=== PATIENT | male | born 1940 | race African-American/Black ===

== ENCOUNTER 2020-05-27 11:29 | Inpatient (IN) | payer MEDICARE ==
[~2020-05-27] VITALS: Ht 180.3 cm; Wt 55.6 kg
[2020-05-27 13:48] LABS: APPEARANCE,URINE TURBID (CLEAR); BILIRUBIN,URINE NEGATIVE (NEGATIVE); GLUCOSE, URINE (UA) NEGATIVE (NEGATIVE); KETONES,URINE NEGATIVE (NEGATIVE); LEUKOCYTE ESTERASE ,URINE LARGE (NEGATIVE); NITRATE,URINE NEGATIVE (NEGATIVE); OCCULT BLOOD,URINE LARGE (NEGATIVE); PH,URINE 5.5 (5.0-8.0); PROTEIN,URINE TRACE (NEGATIVE); UROBILINOGEN,URINE 0.2 mg/dL (<=1.0)
[2020-05-27 13:51] LABS: AMPHET/METH SCREEN,URINE NEGATIVE (NEGATIVE); BARBITURATE SCREEN, URINE NEGATIVE (NEGATIVE); BENZODIAZEPINES SCREEN,URINE NEGATIVE (NEGATIVE); CANNABINOID SCREEN,URINE NEGATIVE (NEGATIVE); COCAINE SCREEN,URINE NEGATIVE (NEGATIVE); METHADONE SCREEN, URINE NEGATIVE (NEGATIVE); OPIATE SCREEN,URINE NEGATIVE (NEGATIVE)
[2020-05-27 13:52] LABS: PHENCYCLIDINE SCREEN,URINE NEGATIVE (NEGATIVE)
[2020-05-27 13:58] LABS: BACTERIA,URINE Few /HPF (None Seen); WBC,URINE Full Field /HPF (0-5)
[2020-05-27 13:59] LABS: SQUAMOUS EPITHELIAL CELL,UR Few /LPF (None Seen)
[2020-05-27 14:16] LABS: BASOPHILS % (AUTO) 1.1 % (0.0-2.0); EOSINOPHILS % (AUTO) 0.1 % (1.0-6.0); HEMATOCRIT 33.1 % (41-53); HEMOGLOBIN 10.8 g/dL (13.5-17.5); LYMPHOCYTES # (AUTO) 0.1 K/uL (1.0-4.8); LYMPHOCYTES % (AUTO) 0.7 % (22.0-44.0); MEAN CORPUSCULAR HEMOGLOBIN 29.7 pg (26.0-34.0); MEAN CORPUSCULAR HGB CONC 32.6 G/dL (31.0-37.0); MEAN CORPUSCULAR VOLUME 91 fL (80-100); MONOCYTES # (AUTO) 0.8 K/uL (0.1-1.0); MONOCYTES % (AUTO) 5.2 % (2.0-9.0); NEUTROPHILS # (AUTO) 13.6 K/uL (1.8-7.7); PLATELET COUNT (AUTO) 436 K/uL (150-450); RED BLOOD CELL COUNT(AUTO) 3.63 MIL/uL (4.50-5.90); RED CELL DISTRIBUTION WIDTH 13.6 % (11.5-14.5)
[2020-05-27 14:25] LABS: NEUTROPHILS % (AUTO) 92.9 % (40.0-70.0)
[2020-05-27 14:33] LABS: INR 1.1 (0.9-1.1); PROTHROMBIN TIME 11.9 SEC (9.4-11.6)
[2020-05-27 14:40] LABS: ANION GAP 16 mmol/L (8-16); CALCIUM, TOTAL 9.4 mg/dL (8.8-10.5); CARBON DIOXIDE 16 mmol/L (22-29); CHLORIDE 93 mmol/L (98-107); CREATININE 15.02 mg/dL (0.60-1.30); GLOMERULAR FILTR. RATE CALC 4 mL/min (>60); GLUCOSE,RANDOM 241 mg/dL (70-110); POTASSIUM 5.8 mmol/L (3.5-5.1); SODIUM SERUM 125 mmol/L (136-145)
[2020-05-27 14:44] LABS: ALANINE AMINOTRANSFERASE 76 U/L (12-78); ALBUMIN 2.6 g/dL (3.4-5.0); ALKALINE PHOSPHATASE 173 U/L (46-116); ASPARTATE AMINOTRANSFERASE 18 U/L (15-37); BILIRUBIN,TOTAL 0.6 mg/dL (0.1-1.0); CREATINE KINASE, TOTAL ONLY 48 U/L (39-308); TOTAL PROTEIN, SERUM 8.3 g/dL (6.4-8.2)
[2020-05-27 14:47] LABS: AMMONIA 23 umol/L (11-32)
[2020-05-27 14:51] LABS: LACTIC ACID 3.4 mmol/L (0.4-2.0)
[2020-05-27 14:52] LABS: TROPONIN I < 0.02 ng/mL (0.00-0.05)
[2020-05-27] MEDS ORDERED: SODIUM CHLORIDE 0.9% 2,050 ML IV ONE (15:01)
[2020-05-27 15:11] LABS: UREA NITROGEN, BLOOD 233 mg/dL (7-18)
[2020-05-27] MEDS ORDERED: CefTRIAXone 1 GM/DEXTROSE 50 ML IV ONE (15:15)
[2020-05-27] MEDS ORDERED: SODIUM POLYSTYRENE SULFONATE 15 GM/60 ML SUSPENSION BOTTLE PO ONE (15:15)
[2020-05-27] MEDS ORDERED: TAMSULOSIN HCL 0.4 MG CAPSULE PO ONE (16:15)
[2020-05-27 16:43] LABS: COVID AG,FIA SOURCE NASOPHARYNGEAL
[2020-05-27] MEDS ORDERED: ACETAMINOPHEN 500 MG TABLET PO ONE (17:45)
[2020-05-27] MEDS ORDERED: ACETAMINOPHEN 325 MG TABLET PO PRN (19:30)
[2020-05-27] MEDS ORDERED: ONDANSETRON HCL 4 MG/2 ML VIAL IVP PRN (19:30)
[2020-05-27] MEDS: SODIUM CHLORIDE 0.45% 1,000 ML IV SCH (19:58)
[2020-05-27] MEDS ORDERED: DEXTROSE 50%-WATER 25 GM/50 ML SYRINGE IVP PRN (20:00)
[2020-05-27 20:06] LABS: CALCIUM, TOTAL 9.1 mg/dL (8.8-10.5); CREATININE 13.22 mg/dL (0.60-1.30); MAGNESIUM 2.4 mg/dL (1.80-2.40); PHOSPHORUS 8.5 mg/dL (2.5-4.9); POTASSIUM 5.1 mmol/L (3.5-5.1)
[2020-05-27] MEDS ORDERED: SODIUM CHLORIDE 0.9% 1,000 ML IV ONE (20:30)
[2020-05-27 23:04] VITALS: BP 133/87
[2020-05-28 00:20] LABS: CREATININE 11.76 mg/dL (0.60-1.30); POTASSIUM 4.8 mmol/L (3.5-5.1)
[2020-05-28 00:42] LABS: GLUCOMETER DEV NAME(LOC) 5S.1; GLUCOSE,POINT OF CARE 119 MG/DL (70-110)
[2020-05-28] MEDS: SODIUM CHLORIDE 0.45% 1,000 ML IV SCH ×2 (06:24→16:12)
[2020-05-28 07:07] LABS: BASOPHILS % (AUTO) 0.1 % (0.0-2.0); EOSINOPHILS % (AUTO) 0.4 % (1.0-6.0); HEMATOCRIT 32.9 % (41-53); LYMPHOCYTES # (AUTO) 0.1 K/uL (1.0-4.8); LYMPHOCYTES % (AUTO) 1.5 % (22.0-44.0); MEAN CORPUSCULAR HEMOGLOBIN 29.9 pg (26.0-34.0); MEAN CORPUSCULAR HGB CONC 33.5 G/dL (31.0-37.0); MEAN CORPUSCULAR VOLUME 89 fL (80-100); MONOCYTES # (AUTO) 0.1 K/uL (0.1-1.0); MONOCYTES % (AUTO) 1.2 % (2.0-9.0); NEUTROPHILS # (AUTO) 7.2 K/uL (1.8-7.7); PLATELET COUNT (AUTO) 420 K/uL (150-450); RED BLOOD CELL COUNT(AUTO) 3.69 MIL/uL (4.50-5.90); RED CELL DISTRIBUTION WIDTH 13.3 % (11.5-14.5)
[2020-05-28 07:11] LABS: NEUTROPHILS % (AUTO) 96.8 % (40.0-70.0)
[2020-05-28 07:40] LABS: CALCIUM, TOTAL 8.6 mg/dL (8.8-10.5); CREATININE 9.48 mg/dL (0.60-1.30); POTASSIUM 4.3 mmol/L (3.5-5.1)
[2020-05-28 08:00] VITALS: BP 118/55
[2020-05-28] MEDS: INSULIN LISPRO 100 UNITS/ML SQ PRN ×2 (12:01→22:00)
[2020-05-28 15:17] LABS: COVID AG,FIA SOURCE NASOPHARYNGEAL
[2020-05-28 16:00] VITALS: BP 100/60
[2020-05-28] MEDS ORDERED: CefTRIAXone 1 GM/DEXTROSE 50 ML IV SCH (16:00)
[2020-05-28] MEDS ORDERED: VANCOMYCIN HCL 1 GM/D5% WATER 200 ML IV ONE (16:00)
[2020-05-28] MEDS ORDERED: VANCOMYCIN HCL 1 GM/D5% WATER 200 ML IV PRN (16:00)
[2020-05-28 19:32] VITALS: BP 93/64
[2020-05-28 22:11] LABS: GLUCOMETER DEV NAME(LOC) 5S.1; GLUCOSE,POINT OF CARE 218 MG/DL (70-110)
[2020-05-28 22:11] LABS: GLUCOMETER DEV NAME(LOC) 5S.1; GLUCOSE,POINT OF CARE 126 MG/DL (70-110)
[2020-05-28 23:44] VITALS: BP 91/58
[2020-05-29] MEDS: SODIUM CHLORIDE 0.45% 1,000 ML IV SCH ×2 (00:55→08:42)
[2020-05-29 03:58] VITALS: BP 98/67
[2020-05-29 06:00] LABS: GLUCOMETER DEV NAME(LOC) 5S.1; GLUCOSE,POINT OF CARE 100 MG/DL (70-110)
[2020-05-29 07:15] VITALS: BP 106/60
[2020-05-29 08:20] LABS: % IRON SATURATION 38.5 % (30-44)
[2020-05-29 08:26] LABS: GLUCOMETER DEV NAME(LOC) 5N.3; GLUCOSE,POINT OF CARE 84 MG/DL (70-110)
[2020-05-29 08:26] LABS: GLUCOMETER DEV NAME(LOC) 5N.3; GLUCOSE,POINT OF CARE 142 MG/DL (70-110)
[2020-05-29 09:00] LABS: CALCIUM, TOTAL 7.7 mg/dL (8.8-10.5); CREATININE 5.25 mg/dL (0.60-1.30); MAGNESIUM 1.5 mg/dL (1.80-2.40); PHOSPHORUS 5.1 mg/dL (2.5-4.9); POTASSIUM 3.6 mmol/L (3.5-5.1)
[2020-05-29 11:11] VITALS: BP 100/67
[2020-05-29] MEDS ORDERED: MAGNESIUM OXIDE 400 MG TABLET PO ONE (11:45)
[2020-05-29] MEDS: INSULIN LISPRO 100 UNITS/ML SQ PRN (12:02)
[2020-05-29 18:31] LABS: GLUCOMETER DEV NAME(LOC) 5S.1; GLUCOSE,POINT OF CARE 150 MG/DL (70-110)
== END 2020-05-29 13:40 | disposition short-term general hospital (02) | DRG 871 ==
LOC: EMS 11:31 → UNDOADMIN 20:16 → ICU 20:16 → 5S 20:32
PROVIDERS: ADMIT Internal Medicine; ATTEND Internal Medicine
DX: A41.9 Sepsis, unspecified organism (principal); E43 Unspecified severe protein-calorie malnutrition; G93.41 Metabolic encephalopathy; E87.1 Hypo-osmolality and hyponatremia; E87.2 Acidosis; N13.6 Pyonephrosis; N17.9 Acute kidney failure, unspecified; Z68.1 Body mass index [BMI] 19.9 or less, adult; R65.20 Severe sepsis without septic shock; Z20.828 Contact with and (suspected) exposure to other viral communicable diseases; R68.0 Hypothermia, not associated with low environmental temperature; D64.9 Anemia, unspecified; E11.22 Type 2 diabetes mellitus with diabetic chronic kidney disease; E11.65 Type 2 diabetes mellitus with hyperglycemia; E87.5 Hyperkalemia; N18.9 Chronic kidney disease, unspecified; N32.89 Other specified disorders of bladder; N40.1 Benign prostatic hyperplasia with lower urinary tract symptoms; R33.8 Other retention of urine
CPT/HCPCS: 51702; 70450; 74176; 76770; 82728; 83036; 83540; 83550; 83605; 83735; 84100; 87040; 87086; 87205; 87426; 93005; 99291; J0696; J3370; J7030; 36415-L1; 36415-TC; 71045-TC

== ENCOUNTER 2024-10-18 18:12 | Emergency (ER) | payer OTHER, MEDICAID ==
[~2024-10-18] VITALS: Ht 172.7 cm; Wt 72.0 kg
[~2024-10-18 18:12] MED LIST: ACET-2247 PO; AMIO200 PO; ASPI-1444 PO; BISA10SU11 PR; DOCU-385 PO; HEPA500018 SQ; MAGN-169 PO; PANT-31 PO; TAMS0.4C94 PO
[2024-10-18 18:52] VITALS: TEMP 98.1
[2024-10-18 22:36] VITALS: BP 112/66; PULSE 70; RESP 14; O2SAT 97
== END 2024-10-18 23:06 | disposition home or self-care (01) ==
LOC: EMS 18:12
DX: L89.159 Pressure ulcer of sacral region, unspecified stage (principal); I48.91 Unspecified atrial fibrillation; Z79.82 Long term (current) use of aspirin; Z79.899 Other long term (current) drug therapy; Z85.46 Personal history of malignant neoplasm of prostate
CPT/HCPCS: 99283; Z7502